=== PATIENT | female | born 1995 | race Caucasian/White ===

== ENCOUNTER → 2020-03-16 08:03 | Outpatient (CLI) | payer SELFPAY ==
[2020-03-04 11:30] VITALS: BMI 33.7
[2020-03-16 08:28] LABS: Absolute Lymphocyte Count 1.89 X10^3/uL (0.83-4.51); Absolute Neutrophil Count 3.2 X10^3/uL (2.0-7.7); Basophil# 0.03 X10^3/uL; Basophil% 0.5 % (0-1); Eosinophil# 0.05 X10^3/uL; Eosinophils% 0.8 % (0-5); Hematocrit 35.5 % (37-47); Hemoglobin 11.5 g/dL (12.0-15.0); Lymphocyte # 1.89 X10^3/ul (4.0); Lymphocyte % 32.1 % (19-41); Mean Corp Hgb Conc 32.4 g/dL (32-36); Mean Corpuscular Hgb 29.1 pg (27.0-32.0); Mean Corpuscular Volume 89.9 fL (81-99); Monocyte# 0.64 X10^3/uL; Monocyte% 10.9 % (0-10); NRBC Flagged by Analyzer 0 % (0-5); Neutrophil # 3.24 X10^3/uL (2.7-7.7); Platelet Count 313 K/mm3 (150-450); RBC Distribution Width CV 13.2 % (11.6-14.6); RBC Distribution Width SD 43.8 fl (35.1-43.9); Red Blood Count 3.95 M/mm3 (4.2-5.4); White Blood Count 5.9 K/mm3 (4.4-11.0)
--- NOTE | 2020-03-16 08:30 | US_ITS ---
STUDY: SECOND AND THIRD TRIMESTER OBSTETRICAL ULTRASOUND REASON FOR EXAM: Female, 24 years old anatomy LMP: 09/04/2019 TECHNIQUE: Transabdominal TECHNICAL QUALITY: Adequate. PRIOR ULTRASOUND: None. FINDINGS: There is a single intrauterine fetus. The fetus is in a cephalic presentation. There is demonstrated cardiac activity with a heart rate of 130 bpm. There is a normal amniotic fluid volume. The largest amniotic fluid pocket measures 6.3 cm x 3.2 cm. The amniotic fluid index (ZAHRAA) is within normal limits. The placenta is posterior in location and is not low lying. The umbilical cord is seen at the placental edge. There are Grade 1 placental changes. The cervix measures 4.3 cm in length. The bilateral adnexal regions are normal. BIOMETRY: BPD: 6.96 cm: 27 weeks, 6 days HC: 26.5 cm: 28 weeks, 5 days AC: 23.76 cm: 28 weeks, 0 days FL: 5.06 cm: 27 weeks, 1 days CI: 75% FL/BPD: 73% FL/HC: FL/AC: 21% HC/AC: 1.12 age by current US: 28 weeks, 2 days. SU by current US: 06/06/2020. Estimated weight: 1133 grams, +/- 168 grams, 36 %. Age by LMP: 27 weeks, 5 days. SU by LMP: 06/10/2020. ANATOMY: Gender: Male Cranium: Normal lateral ventricles. Normal choroid plexus. Normal cerebellum. Normal cisterna magna. Normal face, nose and lips. Chest: Normal 4-chamber heart. Abdomen/Pelvis: Normal diaphragm. Normal stomach. Normal abdominal wall. Normal cord insertion. Normal 3 vessel cord. Normal kidneys. Normal bladder. Spine: Normal cervical spine. Normal thoracic spine. Normal lumbar spine. Normal sacrum. Extremities: Normal bilateral upper extremities. Normal bilateral lower extremities. US/OB Anatomy Scan IMPRESSION: Single live intrauterine gestation with a mean gestational age of 28 weeks and 2 days. Electronically Signed: Nirmal Hernandez, at 14:02 EST , Service support ,
[2020-03-16 08:45] LABS: Glucose Challenge Gest 1H 50g 89 mg/dL (70-140)
[2020-03-16 09:40] LABS: HIV - WCH Non-Reactive (Nonreactive); Hepatitis B Surface Antigen Non-Reactive (Nonreactive); Hepatitis C Antibody Non-Reactive (Nonreactive)
[2020-03-19 02:11] LABS: Rapid Plasmin Reagin (RPR) NONREACTIVE (NONREACTIVE)
== END ==
PROVIDERS: PCP Physician Assistant; Referring Provider Obstetrics & Gynecology; Visit Provider Obstetrics & Gynecology
DX: Z34.90 Encounter for supervision of normal pregnancy, unspecified, unspecified trimester (principal)
CPT/HCPCS: 36415; 76805; 82950; 85025; 86592; 86703; 86803; 86850; 86900; 86901; 87086; 87088; 87340

== ENCOUNTER → 2020-03-30 10:05 | Outpatient (CLI) | payer SELFPAY ==
[2020-03-30 09:25] VITALS: BMI 32.8
[2020-03-30 11:20] LABS: Rubella IgG Reactive (Nonreactive)
== END ==
PROVIDERS: PCP Physician Assistant; Referring Provider Obstetrics & Gynecology; Visit Provider Obstetrics & Gynecology
DX: O09.90 Supervision of high risk pregnancy, unspecified, unspecified trimester (principal); Z3A.00 Weeks of gestation of pregnancy not specified
CPT/HCPCS: 36415; 86762

== ENCOUNTER → 2020-05-11 10:47 | Outpatient (CLI) | payer SELFPAY ==
[2020-04-27 13:21] VITALS: BMI 33.1
--- NOTE | 2020-05-11 10:51 | US_ITS ---
STUDY: SECOND AND THIRD TRIMESTER OBSTETRICAL ULTRASOUND - LIMITED REASON FOR EXAM: Female, 24 years old smaller than dates LMP: 09/04/2019 PRIOR ULTRASOUND: 03/16/2020 TECHNIQUE: Transabdominal TECHNICAL QUALITY: Adequate. FINDINGS: There is a single intrauterine fetus. The fetus is in a cephalic presentation. There is demonstrated cardiac activity with a heart rate of 141 bpm. There is a normal amniotic fluid volume. The largest amniotic fluid pocket measures 5.4 cm. The amniotic fluid index (ZAHRAA) is 13.3 cm. The placenta is posterior in location and is not low lying. There are Grade 2 placental changes. The cervix measures 6.0 cm in length. BIOMETRY: BPD: 8.7 cm: 35 weeks, 1 days HC: 31.5 cm: 35 weeks, 2 days AC: 31.2 cm: 35 weeks, 1 days FL: 6.7 cm: 34 weeks, 3 days Age by LMP: 35 weeks, 5 days. SU by LMP: 06/10/2020. age by current US: 35 weeks, 0 days. SU by current US: . Estimated weight: 2600 grams, +/- 390 grams, 34 percentile. Gender: US/OB Limited With Biometrics IMPRESSION: Living intrauterine of 35 weeks 0 days as described above. Suspect nuchal umbilical cord. Electronically Signed: Alvin Culver MD at 14:56 EST Tel , Service support ,
== END ==
PROVIDERS: PCP Physician Assistant; Referring Provider Obstetrics & Gynecology; Visit Provider Obstetrics & Gynecology
DX: O36.5990 Maternal care for other known or suspected poor fetal growth, unspecified trimester, not applicable or unspecified (principal); Z3A.00 Weeks of gestation of pregnancy not specified
CPT/HCPCS: 76816

== ENCOUNTER → 2020-05-19 17:01 | Outpatient (CLI) | payer SELFPAY ==
[2020-05-19 15:07] VITALS: BMI 33.7
== END ==
PROVIDERS: PCP Physician Assistant; Referring Provider Obstetrics & Gynecology; Visit Provider Obstetrics & Gynecology
DX: Z34.90 Encounter for supervision of normal pregnancy, unspecified, unspecified trimester (principal); Z3A.37 37 weeks gestation of pregnancy
CPT/HCPCS: 87077; 87081; 87186

== ENCOUNTER → 2020-06-08 10:12 | Outpatient (CLI) | payer SELFPAY ==
[2020-05-25 08:51] VITALS: BMI 34.0
[2020-06-08 10:06] VITALS: BMI 34.2
== END ==
PROVIDERS: PCP Physician Assistant; Visit Provider Obstetrics & Gynecology
DX: Z11.59 Encounter for screening for other viral diseases (principal)
CPT/HCPCS: 87635; C9803; U0005; U0003

== ENCOUNTER 2020-06-13 23:18 | Inpatient (IN) | payer SELFPAY ==
[2020-03-16 10:31] VITALS: BMI 31.9
[2020-06-01 09:16] VITALS: BMI 34.2
[2020-06-08 10:06] VITALS: BMI 34.2
[2020-06-13 22:25] VITALS: PULSE 55; TEMP 36.7
[2020-06-13 22:34] VITALS: PULSE 58; O2SAT 99
[2020-06-13 22:55] VITALS: BMI 34.9
[2020-06-13 23:04] VITALS: BP 117/68; PULSE 50
[2020-06-13] MEDS: Lactated Ringers 1,000 ML 50 ML IV (23:27)
--- NOTE | 2020-06-13 23:39 | HP.PCM_ITS ---
- Problem List (1) Non-reassuring status Status: Acute (2) 37 weeks gestation of Status: Acute Comment: electronic test ordered 05/19/20 Negative COvid (3) History of delivery, currently Status: Acute Comment: Desires TOLAC. Induced for abnormal BPP. Received 4 doses of cytotec. Reports because decels and not dilated after cytotec. TOLAC consent signed 03/30. 69% chance of success. RLTCS scheduled for 06/17 @ 7:30 (4) History of prior with IUGR Status: Acute Comment: In last . Induced for abnormal BPP. (5) Positive GBS test Status: Acute Comment: pcn allergic, give clindamycin per culture sensitivities (6) Status: Acute Qualifiers: Comment: Declines genetic, carrier, AFP. nl anatomy us. (7) Recent foreign travel Status: Acute Comment: In [facility] for first 26 weeks of . Due date based on LMP. Recommend anatomy/dating US. Agreeable to repeating NOB labs now that back in [place]. (8) Supervision of high risk , antepartum Status: Acute Comment: PRR SU 06/10/20 [place] 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 Is patient in pain?: No Allergies cephalexin Allergy (Mild, Verified 06/08/20 10:06) rash Medications ascorbate calcium (vitamin C) 500 mg tablet 500 mg PO DAILY 03/04/20 [History Confirmed 06/08/20] docosahexaenoic acid 200 mg capsule mg PO 03/04/20 [History Confirmed 06/08/20] psyllium husk 0.52 gram capsule 0.52 g PO DAILY 03/04/20 [History Confirmed 06/08/20] Last Menstral Period: 09/04/19 Zika: Zika virus screening: Negative : No PFSH PFSH Surgical History S/P (Resolved) Family History Brother Heart defect Grandmother Diabetes Heart disease Grandfather Myocardial infarction Social History (Updated 06/08/20 @ 10:[address] 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 Date Name GA/Weeks Outcome Route Bth Weight Gen Labor Lgth Anesthesia Del Locatn Provider FOB 03/26/18 Caitlyn 40 live - full term 6lbs 11oz Female spinal [facility] Dr. Dayana Lowery Delivery Date: 03/26/18 Patient had no issues during . Was IUGR, induced, failed progression with induction. Cord wrapped around neck and shoulder Billie Rosenberg 24-year-old G2, P1 at 40 weeks gestation who presented for vaginal bleeding and contractions. Cervix was found to be closed. Patient found to have significant bright red bleeding on exam. Baby noted to have 2 late decelerations on the monitor, but heart rate tracing otherwise reassuring with moderate variability and accelerations. Recommendation made to proceed with a repeat section given that she remains closed OB Visit SU Calculator Estimated Delivery Date Method Current WG Current Estimate 06/10/20 LMP (Certain) 39w 5d Expected Delivery Route/Plan TOLAC - RLTCS with GP /3 @0730 scheduled in case no labor patient counseled regarding risks/benefits of trial of labor versus repeat . ACOG/uptodate education given to patient. 69 % likelihood of success per calculator TOLAC consent form signed: 03/30 Labor Preferences- CB/BF classes: no labor support person: Sebastián labor intervention preferences: open to standard interventions pain management options preferred: open to natural or epidural cut cord/dad catch: both : yes PP control planned: none discussed possible routes of delivery and associated risks: discussed possible delivery modalities and possible indications for each including R/B/A of , VAVD, FAVD and CS. questions answered. special requests: none Specific Issue/Plans flu vaccine: declines tdap vaccine: rhogam: NA LARC form signed: 03/30 movement and labor precautions reviewed. Problem list reviewed and updated with the most current plan of care details and appropriate orders placed. Relevant counseling for the gestational age provided. Continue routine care and follow up unless otherwise noted in visit notes/problem list details Initial Weight: Not Recorded Date EGA Weight BP Urine Prot Glucose FHR FuHt Pres Dilation Effaced St Visit Note 03/04/20 26w 0d 184 lb 6 oz 112/78 140 26 GP - NINA from [facility]. NOB labs and anatomy scan ordered. 03/16/20 27w 5d 186 lb 120/70 145 28 SM- labs and us today. no vb lof good fm no regular ctx 03/30/20 29w 5d 191 lb 2 oz 110/62 Negative Negative 140 29 GP - no LOF, VB, DFM, ctx. LARC form signed. Discussed chances of TOLAC. TOLAC form signed. 04/13/20 31w 5d 192 lb 114/80 140 32 SM- no vb lof good fm no regular ctx. tdap today. will order 36 week growth us 04/27/20 33w 5d 193 lb 4 oz 108/72 Negative Negative 150 32 GP - no LOF, VB, DFM, ctx. Measuring 1w behind - growth scheduled for day of next visit. GP - no LOF, VB, DFM, ctx. Measuring 1w behind - growth scheduled for day of next visit. Labor preferences and routes of delivery discussed with patient. 05/11/20 35w 5d 195 lb 4 oz 100/66 Negative Negative 150 35 Cephalic GP - no LOF, VB, DFM, regular ctx. Growth done today. 05/19/20 36w 6d 197 lb 100/72 Negative Negative 130 37 SM- no vb lof good f no regular ctx 05/25/20 37w 5d 198 lb 104/68 Negative Negative 130 38 SM- no vb lof good fm no regular ctx gbs pos reviewed will give clindamycin 06/01/20 38w 5d 199 lb 8 oz 110/82 Negative Negative 145 39 Cephalic 0 40 -3 GP - no LOF, VB, DFM, ctx . Discussed c/s at 41 weeks if does not go into labor before then. GP - no LOF, VB, DFM, ctx. C/S scheduled for 06/15 at 0730 if no labor before then. GP - no LOF, VB, DFM, ctx. C/S scheduled for 2/3 at 0730 if no labor before then. 06/08/20 39w 5d 199 lb 2 oz 122/80 Negative Negative 125 39 Cephalic 0 40 -3 GP - no LOF, VB, DFM, ctx . Cervix still closed. GP - no LOF, VB, DFM, ctx. Cervix still closed. Plan RCS 2/3 if no labor before then. packet given today. Diagnostics Diagnostics Diagnostics Blood Type O POSITIVE 03/16/20 Antibody Screen NEGATIVE 03/16/20 Glucose 1 Hr 50 gm 89 mg/dL (70-140) 03/16/20 HIV 1&2 Antibody Non-Reactive (Nonreactive) 03/16/20 Rubella IgG Antibody Reactive (Nonreactive) 03/30/20 Hgb 11.5 g/dL (12.0-15.0) L 03/16/20 Hct 35.5 % (37-47) L 03/16/20 RPR NONREACTIVE (NONREACTIVE) 03/16/20 Details: HIV: Urine Culture: Sequential Screen: NIPT Screen: ROS Const Reports system reviewed and no additional complaints, except as docu Eyes Reports system reviewed and no additional complaints, except as docu ENT Reports system reviewed and no additional complaints, except as docu Card Reports system reviewed and no additional complaints, except as docu Resp Reports system reviewed and no additional complaints, except as docu GI Reports system reviewed and no additional complaints, except as docu Reports system reviewed and no additional complaints, except as docu, Denies abnormal vaginal bleeding, Denies painful urination, Denies pelvic pain, Denies vaginal discharge, Denies vaginal odor, Denies vaginal itching Musc Reports system reviewed and no additional complaints, except as docu Skin/Breast Reports system reviewed and no additional complaints, except as docu Neuro Yes system reviewed and no additional complaints, except as docu Psych Reports system reviewed and no additional complaints, except as docu Endo Reports system reviewed and no additional complaints, except as docu Exam Const General: cooperative, healthy appearing, comfortable, no acute distress, well developed, well groomed Nutritional Appearance: average body habitus, well nourished Orientation: alert, awake, oriented x3 HENMT Head: normal to inspection, normocephalic, atraumatic Eyes Pupils: PERRL, accommodation normal Resp Effort & Inspection: normal respiratory effort, able to speak in complete sentences, symmetric chest movement Cardio Rate: regular rate GI Palpation: soft, no guarding, no masses, nontender Skin General: no rashes or lesions noted, elasticity normal, turgor normal Neuro General: alert, awake, oriented x3 Cranial Nerves: CN's II-XI intact bilaterally, sense of smell intact, PERRL, accommodation normal, EOM intact bilaterally Speech: speech normal Gait: normal gait Psych Appearance: grossly normal, well kempt Mental Status: mental status grossly normal Mood: congruent mood Affect: normal affect Speech and Movement: speech and movement normal Attitude: cooperative Thought Process: normal Thought Content: normal Judgment: judgment good Results POC Urinalysis 2 Dip (Clinic) Office Urine Glucose Negative Last Edit by Billie Rosenberg on 06/08/20 10:19 Office Urine Protein Negative Last Edit by Billie Rosenberg on 06/08/20 10:19 Assessment & Plan Problems 1. Positive GBS test B95.1 pcn allergic, give clindamycin per culture sensitivities 2. 37 weeks gestation of Z3A.37 electronic test ordered 05/19/20 (scheduled 06/08/20 @ 9:55) 3. History of prior with IUGR Z87.59 In last . Induced for abnormal BPP. 4. History of delivery, currently O34.219 Desires TOLAC. Induced for abnormal BPP. Received 4 doses of cytotec. Reports because decels and not dilated after cytotec. TOLAC consent signed 03/30. 69% chance of success. RLTCS scheduled for 06/17 @ 7:30 5. Recent foreign travel Z78.9 In [place] for first 26 weeks of . Due date based on LMP. Recommend anatomy/dating US. Agreeable to repeating NOB labs now that back in [place]. 6. 39 weeks gestation of Z3A.39 Declines genetic, carrier, AFP. nl anatomy us. 7. Supervision of high risk , antepartum O09.90 PRR SU 06/10/20 [place] PC:Caitlyn Spouse:Sebastián Patient presents with vaginal bleeding and contractions and found to have 2 late decelerations on the monitor. Cervix closed. Recommendation made to proceed with repeat section given significant risks associated with TOLAC in the setting of closed cervix Pain management: per anesthesia GBS positive - treatment with pre-op antibiotics. Management of any complications: none I have reviewed the [facility] and made any clinically relevant updates. UPDATE- I have seen the patient and performed any clinically relevant updates to the history and physical exam. Rain Ford MD
--- NOTE | 2020-06-13 23:43 | PCM.OPRPT ---
Problem List (1) Non-reassuring status Status: Acute (2) 37 weeks gestation of Status: Acute Comment: electronic test ordered 05/19/20 Negative COvid (3) History of delivery, currently Status: Acute Comment: Desires TOLAC. Induced for abnormal BPP. Received 4 doses of cytotec. Reports because decels and not dilated after cytotec. TOLAC consent signed 03/30. 69% chance of success. RLTCS scheduled for 06/17 @ 7:30 (4) History of prior with IUGR Status: Acute Comment: In last . Induced for abnormal BPP. (5) Positive GBS test Status: Acute Comment: pcn allergic, give clindamycin per culture sensitivities (6) Status: Acute Qualifiers: Comment: Declines genetic, carrier, AFP. nl anatomy us. (7) Recent foreign travel Status: Acute Comment: In [place] for first 26 weeks of . Due date based on LMP. Recommend anatomy/dating US. Agreeable to repeating NOB labs now that back in [place]. (8) Supervision of high risk , antepartum Status: Acute Comment: PRR SU 06/10/20 [place]! PC:Caitlyn Spouse:Sebastián Delivery Classification: Scheduled Final SU: 06/10/20 Gestational age: 40 Weeks and 4 Days soa integration architect: Ellie Serrano Type of Anesthesia:: Spinal Date of Procedure: 06/13/20 Pre-Operative Diagnosis: Term , history of , nonreassuring status Post-Operative Diagnosis: Same Indications: 24-year-old G2, P1 at 40 weeks gestation presenting with contractions and vaginal bleeding. Patient gloria regularly on the monitor. Cervix closed. Of noted to be fully coated in blood after vaginal exam. Two late decelerations noted on the monitor, but baby otherwise reassuring with moderate variability and accelerations. Given the patient is closed, having bleeding, and had occasional decelerations on the monitor recommendation was made to proceed with repeat section. Indications for : Nonreassuring Status Description of Procedure: The patient is a G2, P1 at 40 weeks gestation presented for repeat . Spinal anesthesia was placed without difficulty. Young catheter was placed. The patient was placed in the dorsal supine position with leftward tilt. Patient was prepped and draped in the normal sterile fashion. Pfannenstiel skin incision was made with the scalpel and carried through to the underlying layer of fascia with the scalpel. Fascia was nicked in the midline and the incision extended laterally. The rectus bellies were dissected off superiorly and inferiorly with out complication both sharply and bluntly. The peritoneum was entered digitally. The incision was stretched and a low transverse uterine incision was made with the scalpel. The infant's head was delivered atraumatically followed by the anterior and posterior shoulders without complication the rest of the infant delivered. The cord was clamped and cut and the was handed off to awaiting nurse. The placenta was delivered spontaneously immediately following and was noted to be intact and have a three-vessel cord. The uterus was exteriorized cleared of all clots and debris, and the incision was closed in a double layer closure using #1 Monocryl. The ovaries and fallopian tubes were noted to be within normal limits. The uterus was returned to the maternal abdomen and gutters were cleared of all clots and debris. The peritoneum was closed with 3-0 Monocryl in a running fashion. Gloves were changed prior to fascial closure. Fascia was closed with 0 PDS in a running fashion. Subcutaneous tissue was copiously irrigated and the skin was closed with 3-0 Monocryl in a subcuticular fashion. Mepilex dressing was applied without complication. Patient was taken to recovery in stable condition. Amniotic Membrane Rupture Type: Artificial Amniotic Fluid Description: Clear Placenta Disposition: [facility] Drain: Young to straight drain Fluids Replaced: 1500 Cord Entanglement: None Cord Vessel Description: 3 Vessels Esitmated Blood Loss (ml): 500 Infant Gender: Male Delayed cord clamping: Yes Antibiotic Given: Clindamycin 600mg IV x1 and Gentamicin 1.5mg/kg IV x1 Pt instructed on risks of surgery: Bleeding, Anesthesia Risks, Infection, Injury to surrounding structure(s) including bowel and bladder Complications: None - Admit VTE Documentation VTE Present on Admission: No VTE Mechan Device Prophylaxis: SCD's VTE Pharm Prophylaxis ordered?: Yes Multi Select Codes - Urinary/Genital Urinary/Genital CPT Codes: 91026 Delivery [facility]
[2020-06-13 23:47] LABS: Absolute Lymphocyte Count 3.28 X10^3/uL (0.83-4.51); Absolute Neutrophil Count 8.5 X10^3/uL (2.0-7.7); Basophil# 0.03 X10^3/uL; Basophil% 0.2 % (0-1); Eosinophil# 0.08 X10^3/uL; Eosinophils% 0.6 % (0-5); Hematocrit 37.2 % (37-47); Hemoglobin 12.6 g/dL (12.0-15.0); Lymphocyte # 3.28 X10^3/ul (4.0); Lymphocyte % 25.5 % (19-41); Mean Corp Hgb Conc 33.9 g/dL (32-36); Mean Corpuscular Hgb 30.2 pg (27.0-32.0); Mean Corpuscular Volume 89.2 fL (81-99); Mean Platelet Vol. 10.2 fl (6.2-12.0); Monocyte# 0.88 X10^3/uL; Monocyte% 6.8 % (0-10); NRBC Flagged by Analyzer 0 % (0-5); Neutrophil # 8.53 X10^3/uL (2.7-7.7); Neutrophil % 66.4 % (47-70); Platelet Count 337 K/mm3 (150-450); RBC Distribution Width CV 12.8 % (11.6-14.6); RBC Distribution Width SD 41.7 fl (35.1-43.9); Red Blood Count 4.17 M/mm3 (4.2-5.4); White Blood Count 12.9 K/mm3 (4.4-11.0)
[2020-06-13] MEDS: Sodium Citrate/Citric Acid 30 ML UDC PO (23:58)
[2020-06-14] VITALS (56 sets, daily range): BP systolic 95–118; BP diastolic 49–77; PULSE 49–83; RESP 14–18; TEMP 36.1–36.9; O2SAT 96–100
[2020-06-14] MEDS: Oxytocin 30 units/NS 500 ml 30 UNITS/500 ML IV.SOLN 167 UNITS IV (01:12)
[2020-06-14 01:20] LABS: Chlamydia Trachomatis by PCR Negative (Negative); Neisserai gonorrhoeae by PCR Negative (Negative); Probe Check PASS; Sample Adequacy Control PASS; Specimen Processing Control PASS
--- NOTE | 2020-06-14 01:25 | DCINST_ITS ---
Discharge Diet: No Restrictions Discharge Activity: May Not Drive - for 2 weeks or while taking narcotic pain meds., May Shower, May Take a Tub Bath - in 7 days. May resume sexual activity in: 4-6 weeks Lifting Restrictions: 20 pounds Additional Activity Instructions:: Nothing in the vagina for 4-6 weeks. You may return to work/school in 6 weeks. Call your doctor if your incision/area has: Continuous Slow Oozing, Sudden Increased Bleeding, Increased Pain/ Swelling, Increased Redness, Foul Smelling Discharge Call your doctor if you observe: Fever of 101 or Higher Suture Line Care: Avoid Pulling/Pushing, Avoid Pinching/Bending Additional Instructions: If you experience any of the following, contact your healthcare provider. * Bleeding that soaks a pad every hour for 2 hours * Fever 100.4 or higher * Unrelieved incision or abdominal pain * Swelling, redness, discharge or bleeding from your incision or episiotomy site * Your incision begins to separate * Problems urinating (including inability to urinate or burning while urinating). * Visual changes * Severe headache * Flu-like symptoms * Pain or redness in one of both of your breasts * Pain, warmth, tenderness or swelling in your legs, especially the calf area * Frequent nausea and vomiting * Symptoms of depression or anxiety If you experience any of the following, call 911 or go to the nearest Emergency Room. * Chest pain * Problems breathing * Seizure activity * Partial or complete paralysis of a body part, slurred speech, weakness or drooping of the face, or a sudden inability to walk or hold your balance Allergies/Adverse Reactions: Allergies cephalexin Allergy (Mild, Verified 06/13/20 22:56) rash Medications to take at Discharge Calcium 1 tab PO DAILY 06/13/20 Prenatabs FA 1 tab PO DAILY 06/13/20 Follow-Up: Call to make an appointment with your doctor for an incision check in 1-2 weeks. You will also need a 6 week post- follow up appointment. Test results from this visit will be discussed in further detail at your follow- up appointment, if applicable. Primary Care Physician: Torres Dominguez DO [Primary Care Provider] -
--- NOTE | 2020-06-14 02:15 | NURSING ---
pt reports having no food since 1800 06/13/20. pt had sips of water around 2200 06/13/20. anesthesia aware.
--- NOTE | 2020-06-14 02:27 | NURSING ---
1500 cc fluid given in OR per jcoteat CASE SPECIALIST.
[2020-06-14] MEDS: Acetaminophen 500 MG Tablet 1000 MG PO ×4 (03:06→21:16)
[2020-06-14] MEDS: Lactated Ringers 1,000 ML 100 ML IV (04:18)
--- NOTE | 2020-06-14 04:49 | NURSING ---
pt denies feeling dizzy or lightheaded. pt states low BP is her baseline. pt awake, alert, and denies further needs. hanks cath without symptoms. this RN to contact jaz PURCELL in AM to place duramorph order set to obtain duramorph intervention.
[2020-06-14] MEDS: Ketorolac 30 MG/ML Syringe IV ×3 (06:50→18:34)
[2020-06-14] MEDS: 0.9% Saline Lock 10 ML Syringe IV ×3 (06:50→18:34)
[2020-06-14] MEDS: Senna/Docusate Sodium 1 Tablet PO (08:47)
[2020-06-14] MEDS: Enoxaparin 40 MG/0.4 ML Syringe SC (15:14)
[2020-06-15] MEDS: Ibuprofen 600 MG Tablet PO ×3 (01:58→14:54)
[2020-06-15 03:06] VITALS: BP 103/66; PULSE 56; RESP 16; TEMP 36.6
[2020-06-15] MEDS: Acetaminophen 500 MG Tablet 1000 MG PO ×3 (03:09→15:21)
[2020-06-15 05:10] LABS: Hematocrit 32.8 % (37-47); Hemoglobin 10.6 g/dL (12.0-15.0); Mean Corp Hgb Conc 32.3 g/dL (32-36); Mean Corpuscular Hgb 29.4 pg (27.0-32.0); Mean Corpuscular Volume 91.1 fL (81-99); Mean Platelet Vol. 9.8 fl (6.2-12.0); Platelet Count 247 K/mm3 (150-450); RBC Distribution Width CV 13.2 % (11.6-14.6); RBC Distribution Width SD 43.4 fl (35.1-43.9); White Blood Count 8.1 K/mm3 (4.4-11.0)
--- NOTE | 2020-06-15 07:53 | PCM.PN.OB ---
Patient Problems: Active and Suspected Problems (Last Reviewed 06/08/20 @ 10:06 by Billie Rosenberg) Non-reassuring status (Acute) Positive GBS test (Acute) pcn allergic, give clindamycin per culture sensitivities 37 weeks gestation of (Acute) electronic test ordered 05/19/20 Negative COvid History of prior with IUGR (Acute) In last . Induced for abnormal BPP. History of delivery, currently (Acute) Desires TOLAC. Induced for abnormal BPP. Received 4 doses of cytotec. Reports because decels and not dilated after cytotec. TOLAC consent signed 03/30. 69% chance of success. RLTCS scheduled for 06/17 @ 7:30 Recent foreign travel (Acute) In [place] for first 26 weeks of . Due date based on LMP. Recommend anatomy/dating US. Agreeable to repeating NOB labs now that back in [place]. (Acute) Declines genetic, carrier, AFP. nl anatomy us. Supervision of high risk , antepartum (Acute) PRR SU 06/10/20 [place]! PC:Caitlyn Spouse:Sebastián Subjective: Patient doing well without complaints. Tolerating PO. Ambulating and voiding without difficulty. well. Denies chest pain, shortness of breath, calf pain/swelling, fevers, chills, lightheadedness. - Physical Exam Vitals/I&O's: Vital Signs Temp Pulse Resp BP Pulse Ox 97.9 F 56 L 16 103/66 100 06/15/20 03:06 06/15/20 03:06 06/15/20 03:06 06/15/20 03:06 06/14/20 23:54 Oxygen Delivery Method Room Air Weight: 197 lb Body Mass Index (BMI) 34.9 Intake and Output for Last 24 Hours 06/13/20 06/14/20 06/15/20 23:59 23:59 23:59 Intake Total 1935.83 / 1935.83 Output Total 1150 / 1150 Balance 785.83 / 785.83 General: Alert, Oriented x3 Abdomen: Soft, Non-Distended, - - FF below U, dressing dry and intact. Appropriately tender Laboratory Results 06/15/20 05:00: WBC 8.1, RBC 3.60 L, Hgb 10.6 L, Hct 32.8 L, MCV 91.1, MCH 29.4, MCHC 32.3, RDW Std Deviation 43.4, RDW Coeff of Nikunj 13.2, Plt Count 247, MPV 9.8 Current Medications Acetaminophen (Acetaminophen 500 Mg Tablet) 1,000 mg PO Q6H [facility] Last Admin: 06/15/20 03:09 Dose: 1,000 mg Documented by: Bisacodyl (Bisacodyl 10 Mg Suppository) 10 mg RECTAL UD PRN PRN Reason: If no BM Enoxaparin Sodium (Enoxaparin 40 Mg/0.4 Ml Syringe) 40 mg SC DAILY [facility] Last Admin: 06/14/20 15:14 Dose: 40 mg Documented by: Hydrocortisone (Hydrocortisone 2.5% Crm) 1 applic TOPICAL TID PRN PRN; Protocol PRN Reason: Discomfort Ibuprofen (Ibuprofen 600 Mg Tablet) 600 mg PO Q6H [facility] Last Admin: 06/15/20 01:58 Dose: 600 mg Documented by: Methylergonovine Maleate (Methylergonovine 0.2 Mg/Ml Ampul) 0.2 mg IM X1 PRN PRN Reason: Uterine Atony Naloxone HCl (Naloxone 0.4 Mg/Ml Syringe) 0.02 mg IV Q1M PRN PRN Reason: RR <10 and pt unresponsive Ondansetron HCl (Ondansetron 4 Mg/2 Ml Vial) 4 mg IV Q4H PRN PRN PRN Reason: Nausea Oxycodone HCl (Oxycodone 5 Mg Tablet) 5 - 10 mg PO Q4H PRN PRN PRN Reason: Pain Score 4-10 Prochlorperazine Edisylate (Prochlorperazine 10 Mg/2 Ml Vial) 10 mg IV Q6H PRN PRN PRN Reason: NAUSEA Senna/Docusate Sodium (Senna/Docusate Sodium 1 Tablet) 0 tablet PO DAILY [facility] Last Admin: 06/14/20 08:47 Dose: 1 tablet Documented by: Simethicone (Simethicone 80 Mg Tablet) 80 mg PO PCHS PRN PRN Reason: Indigestion/stomach pain Sodium Chloride (0.9% Saline Lock 10 Ml Syringe) 5 - 15 ml IV UD PRN PRN Reason: SALINE FLUSH Last Admin: 06/14/20 18:34 Dose: 10 ml Documented by: Medical Necessity - Tobacco Use Smoking Status: Never smoker Assessment/Plan All Active Problems (Last Reviewed 06/08/20 @ 10:06 by Billie Rosenberg) Non-reassuring status (Acute) Positive GBS test (Acute) 37 weeks gestation of (Acute) History of prior with IUGR (Acute) History of delivery, currently (Acute) Recent foreign travel (Acute) (Acute) Supervision of high risk , antepartum (Acute) s/p LTCS PPD # 1 1. routine post care 2. breast feeding- support given 3. rh positive 4. rubella immune 5.plans home today
[2020-06-15 09:25] VITALS: BP 115/70; PULSE 70; RESP 16; TEMP 36.2; O2SAT 97
[2020-06-15] MEDS: Senna/Docusate Sodium 1 Tablet PO (09:31)
[2020-06-15] MEDS: Enoxaparin 40 MG/0.4 ML Syringe SC (09:32)
[2020-06-15 15:00] VITALS: BP 113/68; PULSE 64; RESP 16; TEMP 36.6; O2SAT 98
== END 2020-06-15 17:05 | disposition home or self-care (01) | DRG 788 ==
LOC: WPOUT 23:19 → WP 23:19
PROVIDERS: Admitting Provider Obstetrics & Gynecology; PCP Physician Assistant; Visit Provider Obstetrics & Gynecology
DX: O34.219 Maternal care for unspecified type scar from previous cesarean delivery (principal); O99.824 Streptococcus B carrier state complicating childbirth; Z37.0 Single live birth; Z3A.40 40 weeks gestation of pregnancy; O76 Abnormality in fetal heart rate and rhythm complicating labor and delivery; Z23 Encounter for immunization
CPT/HCPCS: 59025; 59050; 85025; 86850; 86900; 86901; 87491; 87591; 99218; J7120; 90686; A4216; G0378

== ENCOUNTER → 2020-07-29 12:58 | Outpatient (CLI) | payer SELFPAY ==
[2020-07-29 10:06] VITALS: BMI 31.6
[2020-07-31 14:03] LABS: HPV Reflexed? NOT INDICATED
== END ==
PROVIDERS: PCP Physician Assistant; Visit Provider Obstetrics & Gynecology
DX: Z12.4 Encounter for screening for malignant neoplasm of cervix (principal)
CPT/HCPCS: 88175; G0145

== ENCOUNTER 2021-07-14 07:51 | Outpatient (CLI) | payer SELFPAY | END 2021-07-14 23:59 | disposition home or self-care (01) | LOC: LABSPEC 07-15 07:52 | PROVIDERS: PCP Physician Assistant; Referring Provider Obstetrics & Gynecology; Visit Provider Obstetrics & Gynecology | DX: O09.90 Supervision of high risk pregnancy, unspecified, unspecified trimester (principal); Z3A.00 Weeks of gestation of pregnancy not specified | CPT/HCPCS: 87086; 87088 ==

== ENCOUNTER 2021-08-13 12:25 | Outpatient (CLI) | payer SELFPAY ==
[2021-08-13 13:43] LABS: Absolute Lymphocyte Count 2.38 X10^3/uL (0.83-4.51); Absolute Neutrophil Count 5.4 X10^3/uL (2.0-7.7); Basophil# 0.04 X10^3/uL; Basophil% 0.5 % (0-1); Eosinophils% 1.2 % (0-5); Hematocrit 37.4 % (37-47); Hemoglobin 12.9 g/dL (12.0-15.0); Lymphocyte # 2.38 X10^3/ul (0.83-4.51); Lymphocyte % 28.1 % (19-41); Mean Corp Hgb Conc 34.5 g/dL (32-36); Mean Corpuscular Hgb 29.4 pg (27.0-32.0); Mean Corpuscular Volume 85.2 fL (81-99); Monocyte# 0.51 X10^3/uL; NRBC Flagged by Analyzer 0 % (0-5); Neutrophil % 63.8 % (47-70); Platelet Count 350 K/mm3 (150-450); RBC Distribution Width CV 12.9 % (11.6-14.6); RBC Distribution Width SD 39.8 fl (35.1-43.9); Red Blood Count 4.39 M/mm3 (4.2-5.4); White Blood Count 8.5 K/mm3 (4.4-11.0)
[2021-08-13 14:25] LABS: Rubella IgG Reactive (Nonreactive)
== END 2021-08-13 23:59 | disposition home or self-care (01) ==
PROVIDERS: PCP Physician Assistant; Visit Provider Obstetrics & Gynecology
DX: O09.90 Supervision of high risk pregnancy, unspecified, unspecified trimester (principal); Z3A.00 Weeks of gestation of pregnancy not specified
CPT/HCPCS: 36415; 85025; 86762; 86850; 86900; 86901

== ENCOUNTER → 2021-09-10 | Outpatient (CLI) | payer SELFPAY ==
--- NOTE | 2021-09-10 08:03 | US_ITS ---
STUDY: SECOND AND THIRD TRIMESTER OBSTETRICAL ULTRASOUND REASON FOR EXAM: Female, 25 years old anatomy LMP: 04/13/2021. TECHNIQUE: Transabdominal and Transvaginal TECHNICAL QUALITY: Adequate. PRIOR ULTRASOUND: None. FINDINGS: There is a single intrauterine fetus. The fetus is in a variable presentation. There is demonstrated cardiac activity with a heart rate of 138 bpm. There is a normal amniotic fluid volume. The largest amniotic fluid pocket measures 3.7 cm x 3 cm. The amniotic fluid index (ZAHRAA) is within normal limits. The placenta is anterior and low lying but not previa in location. There are Grade 0 placental changes. The cervix measures in length. The bilateral adnexal regions are normal. BIOMETRY: BPD: 4.56 cm: 19 weeks, 5 days HC: 17.95 cm: 20 weeks, 2 days AC: 15.95 cm: 21 weeks, 0 days FL: 3.42 cm: 20 weeks, 5 days CI: 72% FL/BPD: 75% FL/HC: FL/AC: 21% HC/AC: 1.13 age by current US: 20 weeks, 1 days. SU by current US: 01/27/2022. Estimated weight: 378 grams, +/- 57 grams, 17 %. Age by LMP: 21 weeks, 3 days. SU by LMP: 01/18/2022. ANATOMY: Gender: Indeterminant Cranium: Normal lateral ventricles. Normal choroid plexus. Normal cerebellum. Normal cisterna magna. Normal face, nose and lips. Chest: Normal 4-chamber heart. Abdomen/Pelvis: Normal diaphragm. Normal stomach. Normal abdominal wall. The placental cord insertion is located at 1 cm from the placental edge. Normal 3 vessel cord. Normal kidneys. Normal bladder. Spine: Normal cervical spine. Normal thoracic spine. Normal lumbar spine. Normal sacrum. Extremities: Normal bilateral upper extremities. Normal bilateral lower extremities. IMPRESSION: Single live intrauterine gestation with a mean gestational age of 20 weeks and 1 day. Low-lying anterior placenta. The umbilical cord insertion is located at 1 cm from the edge of the placenta. Electronically Signed: Nirmal Hernandez MD at 9:36 EDT , STUDY: FIRST TRIMESTER OBSTETRICAL ULTRASOUND REASON FOR EXAM: Female, 25 years old. Cervical length. LMP: 04/13/2021 TECHNIQUE: Transvaginal TECHNICAL QUALITY: Adequate. PRIOR ULTRASOUND: None. FINDINGS: The cervical length measures 3.5 cm. US/OB Anatomy Scan IMPRESSION: Cervical length measures 3.5 cm. Electronically Signed: Nirmal Hernandez MD at 9:37 EDT ,
== END | disposition home or self-care (01) ==
PROVIDERS: PCP Physician Assistant; Visit Provider Obstetrics & Gynecology
DX: O09.90 Supervision of high risk pregnancy, unspecified, unspecified trimester (principal); Z3A.00 Weeks of gestation of pregnancy not specified
CPT/HCPCS: 76805; 76817

== ENCOUNTER → 2021-10-04 | Outpatient (CLI) | payer SELFPAY ==
[2021-10-04 13:03] LABS: Absolute Lymphocyte Count 2.52 X10^3/uL (0.83-4.51); Absolute Neutrophil Count 6.9 X10^3/uL (2.0-7.7); Basophil# 0.03 X10^3/uL; Basophil% 0.3 % (0-1); Hematocrit 35.1 % (37-47); Hemoglobin 11.7 g/dL (12.0-15.0); Lymphocyte # 2.52 X10^3/ul (0.83-4.51); Lymphocyte % 24.8 % (19-41); Mean Corp Hgb Conc 33.3 g/dL (32-36); Mean Corpuscular Hgb 29.5 pg (27.0-32.0); Mean Corpuscular Volume 88.4 fL (81-99); Mean Platelet Vol. 9.2 fl (6.2-12.0); Monocyte# 0.56 X10^3/uL; Monocyte% 5.5 % (0-10); NRBC Flagged by Analyzer 0 % (0-5); Neutrophil # 6.87 X10^3/uL (2.7-7.7); Neutrophil % 67.7 % (47-70); Platelet Count 367 K/mm3 (150-450); RBC Distribution Width CV 13.3 % (11.6-14.6); RBC Distribution Width SD 43.1 fl (35.1-43.9); Red Blood Count 3.97 M/mm3 (4.2-5.4); White Blood Count 10.2 K/mm3 (4.4-11.0)
[2021-10-04 13:10] LABS: Glucose Challenge Gest 1H 50g 83 mg/dL (70-140)
== END | disposition home or self-care (01) ==
LOC: PAVLAB 12:31
PROVIDERS: PCP Physician Assistant; Referring Provider Obstetrics & Gynecology; Visit Provider Obstetrics & Gynecology
DX: O09.90 Supervision of high risk pregnancy, unspecified, unspecified trimester (principal); Z3A.21 21 weeks gestation of pregnancy
CPT/HCPCS: 36415; 82950; 85025

== ENCOUNTER → 2021-10-28 | Outpatient (CLI) | payer SELFPAY ==
--- NOTE | 2021-10-28 10:57 | US_ITS ---
STUDY: SECOND AND THIRD TRIMESTER OBSTETRICAL ULTRASOUND - LIMITED REASON FOR EXAM: Female, 26 years old placenta follow-up -- 28 weeks LMP: 04/13/2021. PRIOR ULTRASOUND: Comparison is made with prior study dated 09/10/2021. TECHNIQUE: Transabdominal and Transvaginal TECHNICAL QUALITY: Adequate. FINDINGS: There is a single intrauterine fetus. The fetus is in an transverse lie with the head on the maternal left side. There is demonstrated cardiac activity with a heart rate of 140 bpm. There is a normal amniotic fluid volume. The largest amniotic fluid pocket measures 4.16 cm. The amniotic fluid index (ZAHRAA) is 13.25 cm. The placenta is anterior in location and is not low lying. Cord insertion is at 1.7 cm from the edge of the placenta. There are Grade 0 placental changes. The cervix measures 4.3 cm in length. BIOMETRY: Age by LMP: 28 weeks, 2 days. SU by LMP: 01/18/2022. US/OB Limited (No Biometrics) IMPRESSION: The placenta lies along the anterior wall of the uterus. It is not low lying. The umbilical cord insertion is located at 1.7 cm from the placental edge. Electronically Signed: Nirmal Hernandez MD at 11:56 EDT ,
== END | disposition home or self-care (01) ==
LOC: OPUS 10:56 → US 10:57
PROVIDERS: PCP Physician Assistant; Referring Provider Obstetrics & Gynecology; Visit Provider Obstetrics & Gynecology
DX: O44.42 Low lying placenta NOS or without hemorrhage, second trimester (principal); Z3A.00 Weeks of gestation of pregnancy not specified
CPT/HCPCS: 76815; 76817

== ENCOUNTER → 2021-12-24 | Outpatient (CLI) | payer SELFPAY ==
--- NOTE | 2021-12-24 07:53 | US_ITS ---
STUDY: SECOND AND THIRD TRIMESTER OBSTETRICAL ULTRASOUND - LIMITED REASON FOR EXAM: Female, 26 years old growth LMP: Unknown. PRIOR ULTRASOUND: 09/10/2021 TECHNIQUE: Transabdominal TECHNICAL QUALITY: Adequate. FINDINGS: There is a single intrauterine fetus. The fetus is in a cephalic presentation. There is demonstrated cardiac activity with a heart rate of 129 bpm. There is a normal amniotic fluid volume. The largest amniotic fluid pocket measures 3.5 cm. The amniotic fluid index (ZAHRAA) is 10.5 cm. The placenta is anterior in location and is not low lying. There are Grade 0 placental changes. The cervix measures 4.0 cm cm in length. BIOMETRY: BPD: 8.4 cm: 33 weeks, 5 days HC: 31.8 cm: 25 weeks, 5 days AC: 32.3 cm: 36 weeks, 1 days FL: 6.6 cm: 34 weeks, 0 days Age by LMP: 36 weeks, 3 days. SU by LMP: 01/18/2022. age by prior US: weeks, days. SU by prior US: . age by current US: 35 weeks, 3 days. SU by current US: 01/25/2022. Estimated weight: 2648 grams, +/- 397 grams, 25 percentile. Gender: US/OB Limited With Biometrics IMPRESSION: Living of 35 weeks 3 days as described above. Electronically Signed: Alvin Culver MD at 11:34 EDT ,
== END | disposition home or self-care (01) ==
PROVIDERS: PCP Physician Assistant; Referring Provider Nurse Practitioner Women's Health; Visit Provider Nurse Practitioner Women's Health
DX: Z34.93 Encounter for supervision of normal pregnancy, unspecified, third trimester (principal); Z3A.35 35 weeks gestation of pregnancy
CPT/HCPCS: 76816; 87081

== ENCOUNTER 2022-01-19 05:05 | Inpatient (IN) | payer SELFPAY ==
[2022-01-19] VITALS (15 sets, daily range): BP systolic 76–107; BP diastolic 34–68; PULSE 52–66; RESP 10–16; TEMP 36.1–36.6; O2SAT 97–99; BMI 33.4
[2022-01-19] MEDS: Lactated Ringers 1,000 ML 999 ML IV (05:40)
[2022-01-19 05:55] LABS: Mucous, Urine 0 SEEN /hpf (<or=2+)
[2022-01-19 05:56] LABS: Absolute Lymphocyte Count 2.64 X10^3/uL (0.83-4.51); Absolute Neutrophil Count 7.2 X10^3/uL (2.0-7.7); Basophil# 0.03 X10^3/uL; Basophil% 0.3 % (0-1); Eosinophil# 0.11 X10^3/uL; Hematocrit 36.3 % (37-47); Hemoglobin 11.8 g/dL (12.0-15.0); Lymphocyte # 2.64 X10^3/ul (0.83-4.51); Mean Corp Hgb Conc 32.5 g/dL (32-36); Mean Corpuscular Hgb 29.4 pg (27.0-32.0); Mean Corpuscular Volume 90.3 fL (81-99); Mean Platelet Vol. 9.8 fl (6.2-12.0); Monocyte# 0.56 X10^3/uL; Monocyte% 5.3 % (0-10); NRBC Flagged by Analyzer 0 % (0-5); Neutrophil # 7.17 X10^3/uL (2.7-7.7); Neutrophil % 67.7 % (47-70); Platelet Count 335 K/mm3 (150-450); RBC Distribution Width CV 12.9 % (11.6-14.6); RBC Distribution Width SD 42.3 fl (35.1-43.9); Red Blood Count 4.02 M/mm3 (4.2-5.4); White Blood Count 10.6 K/mm3 (4.4-11.0)
[2022-01-19 06:00] LABS: Color, Urine Yellow (Yellow); Glucose, Dipstick Normal (Normal); Ketone-Dipstick Negative (Negative); Leukocyte Esterase-Dipstick 25 /ul (Negative); Nitrite-Dipstick Negative (Negative); Occult Blood-Urine Negative /ul (Negative); Protein-Dipstick Negative (Negative); Urine Bilirubin Dipstick Negative (Negative); Urine Clarity Clear (Clear); Urine Urobilinogen Normal (Normal)
[2022-01-19 06:12] LABS: Amphetamine Urine VISTA NEGATIVE (<1000 ng/mL); Bacteria 2+ /hpf (None Seen); Barbiturate Urine VISTA NEGATIVE (< 200 ng/mL); Benzodiazepine Urine VISTA NEGATIVE (< 200 ng/mL); Cocaine Urine VISTA NEGATIVE (< 300 ng/mL); Ecstacy Urine VISTA NEGATIVE (< 500 ng/mL); Methadone Urine VISTA NEGATIVE (< 300 ng/mL); PCP Urine VISTA NEGATIVE (< 25 ng/mL); Red Blood Cells-Urine 0-5 SEEN /hpf (0-5); Squamous Epithelial Cells - UA 5-10 SEEN /hpf (5-10); THC Urine VISTA NEGATIVE (< 50 ng/mL); Vista UDS pH Range 7; White Blood Cells 0-5 SEEN /hpf (0-5)
[2022-01-19] MEDS: Acetaminophen 500 MG Tablet 1000 MG PO ×3 (06:43→18:23)
[2022-01-19] MEDS: Sodium Citrate/Citric Acid 30 ML UDC PO (06:43)
[2022-01-19] MEDS: Lactated Ringers 1,000 ML 150 ML IV (06:43)
--- NOTE | 2022-01-19 07:35 | HP.PCM.OB_ITS ---
HPI - General General Date of Admission: 01/19/22 HPI Narrative BEN HAND, is a 26 y/o @ 40 weeks 1 day who presents to L&D for a scheduled repeat section. She has a h/o 2 prior sections. The plan for for TOLAC if spontaneous labor started, however she remained 1 cm/thick/high and was not an excellent candidate at 40 weeks for a . She has a h/o failure to dilate in the past. Maternal Data Information SU Calculator Estimated Delivery Date Method Current WG Current Estimate 01/18/22 LMP (Certain) 40w 1d Other Estimates 01/15/22 Ultrasound #1 40w 4d PFSH PFSH Medical History (Updated 01/19/22 @ 05:59 by Rut Schmid) History of prior with IUGR Low-lying placenta in second trimester Home Medications Calcium 1 tab PO DAILY see provider 06/13/20 [History Last Taken 01/18/22 08:00] vitamin#30 30 mg iron-10 mg iron-folic acid 1 mg-omg3 capsule 1 cap PO DAILY 08/13/21 [History Last Taken 01/18/22 08:00] Allergy/AdvReac Type Severity Reaction Status Date / Time cephalexin Allergy Mild rash Verified 01/19/22 05:55 Family History Brother Heart defect Grandmother Diabetes Heart disease Grandfather Myocardial infarction Surgical History (Updated 01/19/22 @ 05:59 by Rut Schmid) History of surgery S/P Social History adopted: No household members: spouse and children number of children: 2 current occupation: [employer] pets and animals: No Smoking Status: Never smoker alcohol intake: never substance use type: does not use caffeine: Yes additional social history: -[place] 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 Date Name GA/Weeks Outcome Route Bth Weight Gen Labor Lgth Anes t hesia Del Locatn Provider FOB 03/26/18 Caitlyn 40 live - full term 6lbs 11oz Female spinal [facility] Dr. Dayana Lowery 06/13/20 Benson 40 live - full term 6lbs 14oz Male spinal [facility] GP Alona Delivery Date: 03/26/18 Last Updated by: Billie Rosenberg Patient had no issues during . Was IUGR, induced, failed progression with induction. Cord wrapped around neck and shoulder Delivery Date: 06/13/20 Last Updated by: Nancy Hall Cat 2 tracing; vaginal bleeding on exam- proceeded to with RC/S Visit Details Expected Delivery Route/Plan plan for TOLAC by 41 patient counseled regarding risks/benefits of trial of labor versus repeat . ACOG/uptodate education given to patient. 64 % likelihood of success per calculator TOLAC consent form signed: signed 12/24 Labor Preferences- labor support person: alona labor intervention preferences: [] pain management options preferred: open to epidural and be in place in case cut cord/dad catch: [] : [] PP control planned: [] discussed possible routes of delivery and associated risks: [] special requests: [] Plans Covid status: discussed Flu vaccine: discussed Tdap vaccine: declined Rhogam: na LARC form signed:declined movement and labor precautions reviewed. Problem list reviewed and updated with the most current plan of care details and appropriate orders placed. Relevant counseling for the gestational age provided. Continue routine care and follow up unless otherwise noted in visit notes/problem list details OB Flowsheet Initial Weight: Not Recorded Date -?-?-?-?-?-?-?-?-?-?-?-?- EGA Weight BP Urine Prot -?-?-?-?-?-?-?-?-?-?-?-?- Glucose FHR FuHt Pres Dilation -?-?-?-?-?-?-?-?-?-?-?-?- Effaced St Visit Note 07/14/21 -?-?-?-?-?-?-?-?-?-?-?-?- 13w 1d 175 lb 4 oz 120/78 -?-?-?-?-?-?-?-?-?-?-?-?- 160 -?-?-?-?-?-?-?-?-?-?-?-?- JV- CRL consiste nt with LMP. wants to see HPI on new ob visit. 64% chance of success after after 2 prior sections 08/13/21 -?-?-?-?-?-?-?-?-?-?-?-?- 17w 3d 180 lb 120/80 Negative -?-?-?-?-?-?-?-?-?-?-?-?- Negative 150 -?-?-?-?-?-?-?-?-?-?-?-?- SM- no vb nicol enriquez, getting blood drawn today, schedule US 09/10/21 -?-?-?-?-?-?-?-?-?-?-?-?- 21w 3d 181 lb 94/62 -?-?-?-?-?-?-?-?-?-?-?-?- 145 21 -?-?-?-?-?-?-?-?-?-?-?-?- SM- no vb lof go od fm n oreuglar ctx anatomy us today 10/04/21 -?-?-?-?-?-?-?-?-?-?-?-?- 24w 6d 184 lb 4 oz 120/80 Nega tive -?-?-?-?-?-?-?-?-?-?-?-?- Negative 145 25 -?-?-?-?-?-?-?-?-?-?-?-?- SM- no vb lof go od fm no regular ctx 10/28/21 -?-?-?-?-?-?-?-?-?-?-?-?- 28w 2d 189 lb 4 oz 108/70 Nega tive -?-?-?-?-?-?-?-?-?-?-?-?- Negative 140 -?-?-?-?-?-?-?-?-?-?-?-?- JV- normal gct. PT had ultrasound today. prelim shows placenta no longer low lying and wants to still. 11/12/21 -?-?-?-?-?-?-?-?-?-?-?-?- 30w 3d 188 lb 8 oz 120/86 Nega tive -?-?-?-?-?-?-?-?-?-?-?-?- Negative 150 30 -?-?-?-?-?-?-?-?-?--?-?-?- JV- LARC signed. velmentous insertion of umbilcal cord discussed. not low lying. 11/26/21 -?-?-?-?-?-?-?-?-?-?-?-?- 32w 3d 190 lb 104/72 Negative -?-?-?-?-?-?-?-?-?-?-?-?- Negative 140 31 -?-?-?-?-?-?-?-?-?-?-?-?- SM- no vb lof go od fm nor egaulr ctx 12/10/21 -?-?-?-?-?-?-?-?-?-?-?-?- 34w 3d 193 lb 2 oz 110/70 Nega tive -?-?-?-?-?-?-?-?-?-?-?-?- Negative 140 33 -?-?-?-?-?-?-?-?-?-?-?-?- SM- plan growth us 36 weeks no vb lof good fm no regular ctx 12/24/21 -?-?-?-?-?-?-?-?-?-?-?-?- 36w 3d 193 lb 106/73 Negative -?-?-?-?-?-?-?-?-?-?-?-?- Negative 135 35 0 -?-?-?-?-?-?-?-?-?-?-?-?- SM- no vb lof go od fm nor egualr ctx gbs done 12/31/21 -?-?-?-?-?-?-?-?-?-?-?-?- 37w 3d 195 lb 6 oz 117/76 Nega tive -?-?-?-?-?-?-?-?-?--?-?-?- Negative 145 37 -?-?-?-?-?-?-?-?-?-?-?-?- JV- declines exa m today but will do one next visit to plan for vs rpt section options. no lof, vaginal bleeding, or dec fm. no contractions yet. 01/06/22 -?-?-?-?-?-?-?-?-?-?-?-?- 38w 2d 196 lb 4 oz 100/60 Nega tive -?-?-?-?-?-?-?-?-?-?-?-?- Negative 147 38 0 -?-?-?-?-?-?-?-?-?-?-?-?- JV- still no dil ation. we discussed rpt section at 40 weeks if no labor. 01/14/22 -?-?-?-?-?-?-?-?-?-?-?-?- 39w 3d 194 lb 120/78 Negative -?-?-?-?-?-?-?-?-?-?-?-?- Negative 135 39 0 -?-?-?-?-?-?-?-?-?-?-?-?- JV- still no dil ation. plan for rpt section at 40 weeks if no labor. she is wondering if she can wait until 41 weeks we talked about risks today and she will call back if wants to wait longer. chances of success decrease after 40 weeks for a successful vaginal delivery after section. ROS Constitutional Constitutional: Denies change in weight, fatigue, fever(s), headache(s), poor appetite or weakness Eyes Eyes: Denies blurry vision, change in vision, seeing flashes or spots in vision ENT HEENT: Denies dizziness, headache(s), loss taste/smell or sore throat Cardiovascular Cardiovascular: Denies chest pain, dizziness, dyspnea, irregular heart rhythm, leg edema, palpitations, rapid heart rate or vomiting Respiratory/Chest Respiratory/Chest: Denies chest tightness, cough, dyspnea or breast pain Gastrointestinal Gastrointestinal: Denies abdominal pain, anorexia, constipation, cramping, diarrhea, hemorrhoids, vomiting or weight changes Genitourinary Genitourinary: Denies dysuria, flank pain, genital lesions, genital pain, urinary frequency or urinary urgency Musculoskeletal Musculoskeletal: Denies back pain, difficulty walking, joint pain, limited range of motion, muscle cramps or numbness Integumentary Integumentary: Denies lesions or unusual bruising Neurologic Neurologic: Denies abnormal movements, abnormal speech, dizziness, numbness, seizure-like activity or syncope Psychiatric Psychiatric: Denies anxiety, behavioral changes, change in appetite, change in libido, cognitive impairment, confusion, depression, difficulty concentrating, hallucinations or suicidal thoughts Endocrine Endocrinology: Denies excessive sweating, polydipsia or polyuria Hematologic/Lymphatic Hematologic/Lymphatic: Denies easy bleeding, easy bruising or lymphadenopathy Allergic/Immunologic Allergic/Immunologic: Denies itchy eyes, lip swelling, seasonal rhinorrhea, rhinitis, throat swelling, tongue swelling, eczemia, wheezing or asthma Vital Signs Vital Signs Vital Signs: 01/19/22 06:08 Temperature 97 F L Temperature Source Temporal Pulse Rate 66 Respiratory Rate 15 Blood Pressure 106/68 Blood Pressure Mean 80 Blood Pressure Source Monitor Blood Pressure Position Semi-Fowlers Blood Pressure Location Right Arm Pulse Ox 97 Oxygen Delivery Method Room Air Weight Weight: 194 lb 14.218 oz Body Mass Index (BMI) 33.4 Physical Exam Const alert, oriented x3, no apparent distress and healthy appearing General Appearance: cooperative; Negative for anxious HEENT normocephalic Face and Sinus: normal facial exam Eyes EOMs intact bilaterally and no scleral icterus General Eye: normal appearance of both eyes Neck full ROM and supple Lymph Lymphatic: no lymphadenopathy noted Chest Chest: abnormal inspection of the chest Resp normal respiratory effort Effort and Inspection: able to speak in complete sentences Cardio regular rate GI soft to palpation and non-tender Inspection: gravid Palpation: soft; Negative for tender external exam normal Back/Spine no CVA tenderness Extremity normal to inspection, full ROM and no clubbing, cyanosis or edema General Extremity: Negative for calf tenderness or edema Skin Lesions: no lesions Rashes: no rashes Psych mental status grossly normal Labs Labs Labs: Blood Type O POSITIVE Antibody Screen NEGATIVE Hct 36.3 % (37-47) L Hgb 11.8 g/dL (12.0-15.0) L Obstetrics US Syphilis Total Ab Pending Rubella IgG Antibody Reactive (Nonreactive) Hep Bs Antigen Non-Reactive (Nonreactive) HIV 1&2 Antibody Non-Reactive (Nonreactive) Glucose 1 Hr 50 gm 83 mg/dL (70-140) Rhogam given: No Assessment & Plan (1) Supervision of high risk , antepartum: COMMENT: PRR (SP) SU:01/18/22 surprise PC:Benson Brady Spouse:Alona (2) : QUALIFIERS: Weeks of gestation: 39 weeks Qualified Code(s): Z3A.39 - 39 weeks gestation of COMMENT: GBS neg. carrier, genetic, and ntd screening declined. (3) History of delivery, currently : COMMENT: plan TOLAC, h/o 2 previous cs chance of success based on calculator is 64%, RLTCS scheduled for 01/19 @ 7 :30am with JV (4) History of prior with IUGR : COMMENT: 1st . Induced for abnormal BPP. (5) Velamentous insertion of umbilical cord: COMMENT: Norm growth US 12/24 PLAN: Plan plan for ERAS repeat section today plan for routine post op care
--- NOTE | 2022-01-19 07:39 | DCINST_ITS ---
Discharge Instructions Diet Discharge Diet: No restrictions Activity Discharge Activity: May Not Drive (for 2 weeks or while taking narcotic pain medications.), May Shower and May Take a Tub Bath (in 7 days.) May resume sexual activity in: 4-6 weeks Weight Bearing Status: Full weight bearing Lifting Restrictions: 20 pounds Dressing / Incision Call your doctor if your incision/area has: Continuous Slow Oozing, Sudden Increased Bleeding, Increased Pain/ Swelling, Increased Redness and Foul Smelling Discharge Call your doctor if you observe: Fever of 101 or Higher and Using more than 1 pad per hour Suture Line Care: Avoid Pulling/Pushing and Avoid Pinching/Bending Cleanse incision/area with: Soap & Water and Keep Dressing Clean & Dry Follow Up Care Please Follow Up With: Silvia Bowles DO When: Call [phone] to make an appointment for an incision check in 1-2 weeks. Test Results: Test results from this visit will be discussed in further detail at your follow- up appointment, if applicable. Discharge Plan Admission Admit Date/Time: 01/19/22 05:05 Primary Reason for Your Visit: repeat section Attending Provider: Ema Cantor Primary Care Provider: Torres Dominguez Discharge Orders/Prescriptions Prescriptions: New ibuprofen 600 mg tablet 600 mg PO Q6H PRN (Reason: pain) 7 Days Qty: 30 0RF oxycodone-acetaminophen [Percocet] 5-325 mg tablet 1 tab PO Q4H PRN (Reason: pain) 7 Days Qty: 30 0RF Continued PNV #[id number] 30 mg iron-10 mg iron-1 mg capsule 1 cap PO DAILY Calcium 1 tab PO DAILY Referrals / Follow Up: Torres Dominguez PA-C [Primary Care Provider] - Disposition Disposition (needs filled in before D/C Order can be placed): Home, Self Care
[2022-01-19] MEDS: Clindamycin 900 MG/50 ML BAG 75 MG IV (07:42)
[2022-01-19 07:43] LABS: Chlamydia Trachomatis by PCR Negative (Negative); Neisserai gonorrhoeae by PCR Negative (Negative); Probe Check PASS; Sample Adequacy Control PASS; Specimen Processing Control PASS
[2022-01-19] MEDS: Oxytocin 30 units/NS 500 ml 30 UNITS/500 ML IV.SOLN 167 UNITS IV (08:50)
--- NOTE | 2022-01-19 09:27 | NURSING ---
RN called [facility] to see if they could help with not being able to transfer orders. This RN called Dr. Simone Kinsey to see if he had logged in to the pts chart to put orders in, he had never been in chart. RN had to leave message with [facility] to call back.
[2022-01-19] MEDS: Lactated Ringers 1,000 ML 100 ML IV (09:30)
[2022-01-19 09:50] LABS: Syphilis Antibodies Non-reactive
--- NOTE | 2022-01-19 10:19 | EX.PCM.OBRPT ---
Assessment & Plan (1) Status post repeat low transverse section: COMMENT: 01/19/22- JV (2) Supervision of high risk , antepartum: COMMENT: PRR (SP) SU:01/18/22 surprise PC:Benson Brady Spouse:Sebastián (3) : QUALIFIERS: Weeks of gestation: 39 weeks Qualified Code(s): Z3A.39 - 39 weeks gestation of COMMENT: GBS neg. carrier, genetic, and ntd screening declined. (4) History of delivery, currently : COMMENT: plan TOLAC, h/o 2 previous cs chance of success based on calculator is 64%, RLTCS scheduled for 01/19 @ 7:30am with JV (5) History of prior with IUGR : COMMENT: 1st . Induced for abnormal BPP. (6) Velamentous insertion of umbilical cord: COMMENT: Norm growth US 12/24 Maternal Data Information US Calculator Estimated Delivery Date Method Current WG Current Estimate 01/18/22 LMP (Certain) 40w 1d Other Estimates 01/15/22 Ultrasound #1 40w 4d Details Operative Information Date of Procedure: 01/19/22 Pre-Operative Diagnosis: 40 weeks, prior section x 2 Post-Operative Diagnosis: 40 weeks, prior section x 2 Indications for : Repeat Elective Classification: Scheduled Procedure Type: low transverse animal nutrition consultant #1: Pat Cooley Type of Anesthesia: Spinal Antibiotic Given: Ancef 2 grams IV x1 Estimated Blood Loss: 400cc Findings Description of Procedure: The patient is a 26 y/o presented for repeat . Spinal anesthesia was placed without difficulty. Young catheter was placed. The patient was placed in the dorsal supine position with leftward tilt. Patient was prepped and draped in the normal sterile fashion. Pfannenstiel skin incision was made with the scalpel and carried through to the underlying layer of fascia with the scalpel. Fascia was nicked in the midline and the incision extended laterally. The rectus bellies were dissected off superiorly and inferiorly with out complication both sharply and bluntly. The peritoneum was entered digitally. The incision was stretched and a low transverse uterine incision was made with the scalpel. The 's head was delivered atraumatically followed by the anterior and posterior shoulders without complication the rest of the infant delivered. The cord was clamped and cut and the infant was handed off to awaiting nurse. The placenta was delivered spontaneously immediately following and was noted to be intact and have a three-vessel cord. The uterus was exteriorized cleared of all clots and debris, and the incision was closed in a double layer closure using #1 vicryl and #1 Monocryl. The uterus was noted to be paper thin on the lower uterine segment. enforcement sutures with 1 Monocryl were placed. The ovaries and fallopian tubes were noted to be within normal limits. The uterus was returned to the maternal abdomen and gutters were cleared of all clots and debris. The peritoneum was closed with 3-0 Monocryl in a running fashion. Fascia was closed with 0 PDS in a running fashion. Subcutaneous tissue was copiously irrigated and the skin was closed with 3-0 Monocryl in a subcuticular fashion. Mepilex dressing was applied without complication. Patient was taken to recovery in stable condition. It was discussed with the patient that based on the clinical information obtained during this encounter, combined with her history, at this time I would recommend for future deliveries if further pregnancies are desired. Presentation: Positive for Vertex Amniotic Membrane Rupture Type: Artificial Amniotic Fluid Description: Clear Placental Delivery Description: Manual Removal Placenta Disposition: [facility] Cord Vessel Description: 3 Vessels Cord Entanglement: None Infant A Gender: Male (1 minute): 9 (5 minute): 9 Delayed Cord Clamping: Yes Complications Risks of Surgery Discussed w/Patient: Bleeding, Anesthesia Risks, Infection, Need for Future C-Sections and Injury to surrounding structure(s) including bowel and bladder Multi Select Codes Urinary/Genital Urinary/Genital CPT Codes: 00308 Delivery [facility]
[2022-01-19 10:20] LABS: HIV - WCH Non-Reactive (Nonreactive); Hepatitis B Surface Antigen Non-Reactive (Nonreactive); Hepatitis C Antibody Non-Reactive (Nonreactive)
[2022-01-19] MEDS: Ketorolac 30 MG/ML Syringe IV ×3 (10:25→22:38)
[2022-01-19] MEDS: Senna/Docusate Sodium 1 Tablet PO (10:26)
--- NOTE | 2022-01-19 14:30 | PLAC_PTH ---
PATIENT: BEN HAND LOC: [facility] U#:[id number] AGE/SX: 26/F ROOM: [facility] RE01/19/[address]: Dr. Silvia Bowles DO : 1995 BED: 1 DIS: 01/21/2022 SPEC #: [id number] RECD: 01/19/22 14:46 STATUS: DERRICK SHANELLE #: [id number] CLARK: 01/19/22 14:[address]: Slivia Bowles DEPT: SURGICAL PATHOLOGY RECD BY: Mirela Kendall ENTERED: 01/20/22 08:32 SP TYPE: PLACENTA OTHR DR: Torres Dominguez PA-C Tissues: Placenta, NOS Procedures: Surgery Specimen Level V HEADER OPERATION: Repeat section PRE-OP DIAGNOSIS: Velamentous cord insertion TISSUE SUBMITTED: Placenta MICROSCOPIC DIAGNOSIS Placenta: Placental disc - third trimester placenta (492 gm). - Focal area of peripheral infarction (4 cm in greatest dimension). Membranes ? marginal insertion. Umbilical cord - three blood vessels and no pathologic diagnosis. SJ:ebtsy 01/24/2022 MICROSCOPIC DESCRIPTION Slides are reviewed. GROSS DESCRIPTION SPECIMEN: PLACENTA / CLINICAL INFORMATION: A. Weight: 3.005 kg B. Gestational Age: 40 weeks C. Sex: Male PLACENTAL WEIGHT (POST FIXATION): 492 gm PLACENTAL DIMENSIONS: 16 x 15 x 4 cm PLACENTAL SHAPE: Usual ovoid PLACENTAL WEIGHT FOR GESTATIONAL AGE: Within 10-99th percentile MEMBRANES - Present A. Insertion: Marginal B. Site of rupture from edge: At from edge of placental disc C. Color of membrane: Leavitt-meza D. Abnormalities: None UMBILICAL CORD - Present A. Color: Leavitt-meza B. Insertion: Marginal C. Length: 28 cm D. Diameter: 1.2 cm E. Number of vessels: Three F. Abnormalities: None PLACENTAL DISC - Present A. Color of surface: Leavitt-meza B. surface abnormalities: None C. Maternal cotyledons: Intact with minimal tears D. Attached retro placental clot: No clot E. Cut surface: Dark red and spongy F. Lesions: Sections reveal a focal, leavitt, indurated area in the peripheral portion of the placenta close to the insertion of umbilical cord measuring 4 cm in greatest dimension. G. Separate clot: Absent SECTIONS SUBMITTED: 1. Membrane roll 2. Cord, maternal end 3. Cord, end 4. Placental disc, and maternal surfaces, lesion 5. Placental disc, and maternal surfaces 6. Placental disc, and maternal surfaces SJ:betsy 01/21/2022 TC:5 CPT: 66938
[2022-01-19 14:46] LABS: Pathology Specimen OB SEE PATHOLOGY REPORT
[2022-01-20] MEDS: Acetaminophen 500 MG Tablet 1000 MG PO ×4 (00:20→18:21)
[2022-01-20 00:23] VITALS: BP 92/49; PULSE 55; RESP 16; TEMP 36.1; O2SAT 98
[2022-01-20 04:20] VITALS: BP 93/53; PULSE 60; RESP 16; TEMP 36.4; O2SAT 97
[2022-01-20] MEDS: Ketorolac 30 MG/ML Syringe IV (04:23)
[2022-01-20 05:27] LABS: Hematocrit 31.8 % (37-47); Hemoglobin 10.2 g/dL (12.0-15.0); Mean Corp Hgb Conc 32.1 g/dL (32-36); Mean Corpuscular Hgb 29.4 pg (27.0-32.0); Mean Corpuscular Volume 91.6 fL (81-99); Mean Platelet Vol. 9.7 fl (6.2-12.0); Platelet Count 255 K/mm3 (150-450); RBC Distribution Width CV 13.2 % (11.6-14.6); RBC Distribution Width SD 44.5 fl (35.1-43.9); Red Blood Count 3.47 M/mm3 (4.2-5.4); White Blood Count 9.7 K/mm3 (4.4-11.0)
[2022-01-20 08:29] VITALS: BP 116/66; PULSE 74; RESP 16; TEMP 36.1; O2SAT 98
[2022-01-20] MEDS: Ibuprofen 600 MG Tablet PO ×3 (09:55→23:41)
[2022-01-20] MEDS: Senna/Docusate Sodium 1 Tablet PO (09:55)
--- NOTE | 2022-01-20 14:19 | NURSING ---
This nursing care partner reviewed the documentation completed by Marilu Orlando, student nurse.
[2022-01-20 14:21] VITALS: BP 100/57; PULSE 64; RESP 16; TEMP 36.6; O2SAT 96
--- NOTE | 2022-01-20 15:05 | NURSING ---
This clinical nursing instructor reviewed the documentation completed by Marilu Orlando, student nurse.
--- NOTE | 2022-01-20 15:45 | PN.OBGYN_ITS ---
Subjective Subjective Patient is laying in bed comfortably without complaints. She states that she slept on an off during the night. Lochia is mild and pain is minimal. Objective Data Objective Data Vital Signs: Vital Signs Temp Pulse Resp BP Pulse Ox O2 Del Method 97.8 F 64 16 100/57 L 96 Room Air 01/20/22 14:21 01/20/22 14:21 01/20/22 14:21 01/20/22 14:21 01/20/22 14:21 01/20/22 14:21 Oxygen Delivery Method Room Air Weight: 194 lb 14.218 oz Body Mass Index (BMI) 33.4 Intake & Output: Intake and Output for Last 24 Hours 01/18/22 01/19/22 01/20/22 23:59 23:59 23:59 Intake Total 2095.25 / 2095.25 Output Total 1770 / 1770 450 / 450 Balance 325.25 / 325.25 -450 / -450 Lab / Micro Data Result Diagrams: 01/20/22 05:21 Labs: Laboratory Results - last 24 hr 01/20/22 05:21: WBC 9.7, RBC 3.47 L, Hgb 10.2 L, Hct 31.8 L, MCV 91.6, MCH 29.4, MCHC 32.1, RDW Std Deviation 44.5 H, RDW Coeff of Nikunj 13.2, Plt Count 255, MPV 9.7 Micro: Microbiology 01/19/22 05:40 Nasal Secretion SARS-CoV-2 Antigen (Rapid) - Final ROS Constitutional Constitutional: Reports systems reviewed and no addt'l complaints, except as do cumented Cardiovascular Cardiovascular: Denies chest pain, dizziness, dyspnea or irregular heart rhythm Respiratory/Chest Respiratory/Chest: Denies cough, pain on inspiration or shortness of breath at r est Gastrointestinal Gastrointestinal: Denies abdominal pain, nausea or vomiting Genitourinary Genitourinary: Denies burning urination Musculoskeletal Musculoskeletal: Denies muscle cramps, muscle spasms or muscle weakness Neurologic Neurologic: Denies confusion, dizziness, headache(s) or lack of coordination Psychiatric Psychiatric: Denies anxiety, behavioral changes or depression Physical Exam HEENT normocephalic Resp normal respiratory effort and normal air movement GI soft to palpation, non-tender and non-distended Rectal Exam: other Other Details: Incision is clean, dry, and intact no CVA tenderness Extremity normal to inspection General Extremity: edema bilateral (trace ) Assessment & Plan (1) Status post repeat low transverse section: COMMENT: 01/19/22- Osorio grady PLAN: Plan s/p LTCS PPD # 1 1. routine post care 2. breast feeding- support given 3. rh positive 4. rubella immune
[2022-01-20 20:39] VITALS: BP 103/63; PULSE 56; RESP 16; TEMP 36.6; O2SAT 98
[2022-01-21] MEDS: Acetaminophen 500 MG Tablet 1000 MG PO ×2 (00:35→06:46)
[2022-01-21 02:00] VITALS: BP 100/57; PULSE 56; RESP 16; TEMP 36.7; O2SAT 97
[2022-01-21] MEDS: Ibuprofen 600 MG Tablet PO (05:22)
--- NOTE | 2022-01-21 07:44 | PCM.PN.OB ---
Subjective Subjective Patient is laying in bed comfortably without complaints. She states that she slept on an off during the night. Lochia is mild and pain is minimal. Objective Data Objective Data Vital Signs: Vital Signs Temp Pulse Resp BP Pulse Ox O2 Del Method 98.1 F 56 L 16 100/57 L 97 Room Air 01/21/22 02:00 01/21/22 02:00 01/21/22 02:00 01/21/22 02:00 01/21/22 02:00 01/21/22 02:00 Oxygen Delivery Method Room Air Weight: 194 lb 14.218 oz Body Mass Index (BMI) 33.4 Intake & Output: Intake and Output for Last 24 Hours 01/19/22 01/20/22 01/21/22 23:59 23:59 23:59 Intake Total 2095.25 / 2095.25 Output Total 1770 / 1770 450 / 450 Balance 325.25 / 325.25 -450 / -450 Lab / Micro Data Result Diagrams: 01/20/22 05:21 Micro: Microbiology 01/19/22 05:40 Nasal Secretion SARS-CoV-2 Antigen (Rapid) - Final ROS Constitutional Constitutional: Reports systems reviewed and no addt'l complaints, except as documented Cardiovascular Cardiovascular: Denies chest pain, dizziness, dyspnea or irregular heart rhythm Respiratory/Chest Respiratory/Chest: Denies cough, pain on inspiration or shortness of breath at rest Gastrointestinal Gastrointestinal: Denies abdominal pain, nausea or vomiting Genitourinary Genitourinary: Denies burning urination Musculoskeletal Musculoskeletal: Denies muscle cramps, muscle spasms or muscle weakness Neurologic Neurologic: Denies confusion, dizziness, headache(s) or lack of coordination Psychiatric Psychiatric: Denies anxiety, behavioral changes or depression Physical Exam HEENT normocephalic Resp normal respiratory effort and normal air movement GI soft to palpation, non-tender and non-distended Rectal Exam: other Other Details: Incision is clean, dry, and intact no CVA tenderness Extremity normal to inspection General Extremity: edema bilateral (trace ) Assessment & Plan (1) Status post repeat low transverse section: COMMENT: 01/19/22- Osorio grady PLAN: Plan s/p LTCS PPD # 2 1. routine post care 2. breast feeding- support given 3. rh positive 4. rubella immune 5. pt feeling much better today and wants to go home.
[2022-01-21 07:46] VITALS: BP 108/70; PULSE 65; RESP 16; TEMP 36.2; O2SAT 98
[2022-01-21] MEDS: Senna/Docusate Sodium 1 Tablet PO (09:23)
--- NOTE | 2022-01-21 11:19 | NURSING ---
Reviewed and agreed with Tony RN charting.
--- NOTE | 2022-01-25 14:38 | NURSING ---
Follow up phone call done , no answer, left voicemail.
== END 2022-01-21 10:10 | disposition home or self-care (01) | DRG 788 ==
PROVIDERS: Obstetrics & Gynecology; Admitting Provider Obstetrics & Gynecology; PCP Physician Assistant; Visit Provider Obstetrics & Gynecology
PROC: 10D00Z1 Extraction of Products of Conception, Low, Open Approach (ICD-10-PCS; CPT 59514; principal; 2022-01-19 07:15)
DX: O34.211 Maternal care for low transverse scar from previous cesarean delivery (principal); O43.123 Velamentous insertion of umbilical cord, third trimester; Z37.0 Single live birth; Z3A.40 40 weeks gestation of pregnancy; Z87.59 Personal history of other complications of pregnancy, childbirth and the puerperium
CPT/HCPCS: 59050; 80307; 81001; 85025; 85027; 86703; 86780; 86803; 86850; 86900; 86901; 87340; 87426; 87491; 87591; 88307; 99218; J7120; G0378; J2405